=== PATIENT | female | born 1955 | race Caucasian/White ===

== ENCOUNTER 2016-12-02 09:49 | Day surgery (SDC) | payer OTHER ==
[~2016-12-02] VITALS: Ht 157.5 cm; Wt 78.9 kg
[~2016-12-02 09:49] MED LIST: 0.9% Sodium Chloride 1,000 ML IV SCH; ATOR20TA PO; ESTR0.3T2 PO; FLUT9.9S NS; Sodium Chloride LOK Flush 10 mL Syringe IV PRN; TELM1TAB2 PO; fentaNYL-PF 50 mCg/mL 2 mL Inj IVPUSH PRN
[2016-12-02 10:04] VITALS: BP 143/80; PULSE 68; RESP 14; O2SAT 99
[2016-12-02] MEDS ORDERED: OMEP20TA24 PO (10:10)
--- NOTE | 2016-12-02 11:33 | PCM.ENDCOL ---
Colonoscopy Date of Service: Dec 02, 2016 Physician Ehsan Stern MD Pre Procedure Diagnosis: Screening Post Procedure Dx & Findings: Polyp hemorrhoids diverticuli Procedure Colonoscopy PROCEDURE IN DETAIL: Prep adequate Withdrawal time 10 minutes After unremarkable rectal examination the Olympus video colonoscope was inserted patient's anal canal and was advanced to cecum. Landmarks were identified including the ileocecal valve and appendiceal orifice. Scope was withdrawn systematically. Visualized colonic mucosa showed healthy shiny mucosa with normal healthy-appearing vasculature. In the transverse colon, there was a 1 mm polyp which was removed completely using cold forceps. In the sigmoid colon there are several small diverticuli. In the rectum retroflexion was done which showed hemorrhoids. Anal canal was inspected carefully on the way out and hemorrhoids noted. Impression Polyp 1 was completely removed Diverticuli Hemorrhoids Recommendation Repeat colonoscopy 5 years Diverticular diet Presedation Assessment Risks and Benefits Informed consent was obtained from the patient after all risks and benefits including but not limited to drug reaction, infection, pain, bleeding, perforation, as well as alternatives were discussed. Patient monitoring Continuous pulse oximetry, cardiac monitoring, blood pressure monitoring, IV access, and oxygen at 2L per nasal cannula. Periprocedural Fentanyl: Fentanyl 100mcg Incrementally Midazolam: Midazolam 5mg Incrementally Complications There were no periprocedural complications identified. Post Procedure Plan Post Procedure Recommendations 1. Restrict activities today. 2. Resume normal activities in the morning. 3. Resume medications. 4. Patient informed of normal post procedure side effects as bloating, drowsiness, blood streaking in the stool. 5. average risk CRCS. If colon polyps come back as: -Hyperplastic- can repeat colonoscopy in 10 years -Tubular adenoma- repeat colonoscopy in 5 years -Tubulovillous/villous adenoma- repeat colonoscopy in 3 years -If any dysplasia- return to clinic as soon as possible 6. Please don't hesitate to call me with any questions. Ehsan Stern MD Dec 02, 2016 11:33
[2016-12-02 11:35] VITALS: BP 105/60; PULSE 60; RESP 14; O2SAT 95
[2016-12-02 11:46] VITALS: BP 97/56; PULSE 61; RESP 14; O2SAT 95
--- NOTE | 2016-12-04 19:39 | PATH ---
SURGICAL PATHOLOGY Attending Physician:Ehsan Stern M.D. CASE STATUS: Signed Out PATIENT NAME: STEVE WEAVER PID: [id number] : 1955 DATE COLLECTED:12/02/2016 20:21 SPECIMEN: Colon, Biopsy CLINICAL HISTORY: 1). TRANSVERSE POLYP FINAL DIAGNOSIS: Transverse Colon, Polyp, Biopsy: Tubular adenoma; negative for high-grade dysplasia. ICD10: K63.5 GROSS DESCRIPTION: The specimen is received in one formalin filled container labeled with the patient's name, sublabeled "transverse polyp" and consists of a 0.3 x 0.2 x 0.2 CM portion of tissue which is entirely submitted in one cassette. 12/02/2016 [facility] ICD-9 CODES: CPT CODES: 1: 82845 Electronically Signed Out Stephanie ePña MD [facility] Pathology [facility], [place] [address] Technical component performed at [facility], [address] [place] [address] Ave[address], [address]
== END 2016-12-02 23:59 | disposition home or self-care (01) ==
LOC: END 09:49
PROVIDERS: ATTEND Internal Medicine
DX: Z12.11 Encounter for screening for malignant neoplasm of colon (principal); D12.3 Benign neoplasm of transverse colon; K57.30 Diverticulosis of large intestine without perforation or abscess without bleeding; K64.8 Other hemorrhoids; I10 Essential (primary) hypertension; E78.5 Hyperlipidemia, unspecified; N95.1 Menopausal and female climacteric states; K21.9 Gastro-esophageal reflux disease without esophagitis
CPT/HCPCS: 45380; G0500; J2250; J3010; J7030